=== PATIENT | male | born 1955 | race American Indian/Alaskan Native ===

== ENCOUNTER 2019-08-19 20:19 | Emergency (ER) | payer OTHER, SELFPAY ==
[2019-08-19 20:20] VITALS: BP 154/117; PULSE 56; RESP 15; TEMP 36.6; O2SAT 97; BMI 26.2
[2019-08-19] MEDS: Lidocaine Jelly 2% 20 ML Syringe (URO-JET) 20 APPLIC TOPICAL (20:45)
--- NOTE | 2019-08-19 21:07 | ED.VISSUMM ---
- ER Visit Summary Date of Service: 08/19/19 Chief Complaint: Urinary retention History of Present Illness: The patient is a 63 M who today had a uro-lift by Dr. pro ng. He reports that he is been unable to urinate since 2:00 this afternoon. He has a sharp suprapubic pain is 10-10 in severity. Is worsened by movement relieved by nothing. Denies any nausea, vomiting, or diarrhea. Physical Examination: Vitals: Stable. Afebrile. General: Well-nourished and well-developed. Head: Normocephalic atraumatic. Neck: Supple, no lymphadenopathy. No JVD. Nontender. Cardiovascular: Regular rate and rhythm. No murmurs. Respiratory: No respiratory distress. Clear to auscultation bilaterally. Abdominal: Soft, moderate suprapubic tenderness with an obviously distended bladder, nondistended, normal bowel sounds. No guarding, rebound, or peritoneal signs. Back: Nontender. Extremities: Nontender, no edema. Skin: Normal color, no rash. Neurologic: Alert and oriented ?3. Cranial nerves II through XII are intact. Normal strength and sensation. Psych: Normal affect. Emergency Department Course and Treatment: Patient had a Urojet use and a Silva was placed without difficulty. Treatment Plan: Patient was discussed with Dr. Tsai. He will be discharged with the Silva in place. Instructed to follow-up in the office in 3 days for another exam. Return to the emergency department for any worsening symptoms. Disposition: To home in improved and stable condition. Impression: 1. Urinary retention. 2. Postop day #0 status post UroLift. This note was generated with Schedule Savvy dictation software. It may contain incorrect words, spelling, and punctuation that were not noted in review of the chart prior to signing ED Disposition - Plan for ED Patient: Disposition: Home or Assisted Living Instructions: URINARY RETENTION, Male Referrals: Justino Tsai MD [STAFF PHYSICIAN] - 08/22/19
[2019-08-19 21:42] VITALS: BP 134/87; PULSE 91; RESP 16; O2SAT 99
== END 2019-08-19 21:43 | disposition home or self-care (01) ==
LOC: ED 21:09
PROVIDERS: Emergency Provider Emergency Medicine; PCP Student in an Organized Health Care Education/Training Program
DX: R33.9 Retention of urine, unspecified (principal); R10.9 Unspecified abdominal pain
CPT/HCPCS: 51702; 99283

== ENCOUNTER → 2019-08-29 13:50 | Outpatient (CLI) | payer OTHER, SELFPAY ==
[2019-08-25 15:32] VITALS: BMI 26.7
== END ==
PROVIDERS: PCP Student in an Organized Health Care Education/Training Program; Referring Provider Internal Medicine Cardiovascular Disease; Visit Provider Internal Medicine Cardiovascular Disease
DX: R00.1 Bradycardia, unspecified (principal); I44.7 Left bundle-branch block, unspecified
CPT/HCPCS: 93225; 93226

== ENCOUNTER → 2019-08-31 06:12 | Outpatient (CLI) | payer OTHER, SELFPAY ==
[2019-08-25 15:32] VITALS: BMI 26.7
--- NOTE | 2019-08-31 09:32 | STRESSREP ---
Stress Test Report Date: 08-31-2019 Procedure: Pharmacologic stress nuclear imaging study Indications: Chest pain; left bundle branch block Consent: Per the patient Procedure: The patient underwent pharmacologic (Regadenoson) evaluation with a peak heart rate of 98 beats per minute (62 %predicted maximal heart rate) and a peak blood pressure of 128/86 mmHg. The baseline ECG demonstrated sinus bradycardia; left bundle branch block. The peak pharmacologic ECG demonstrated no obvious ECG changes. There were occasional PVCs during pharmacologic infusion. There was no complaint of chest discomfort during pharmacologic infusion or recovery. The examination was discontinued secondary to completion of protocol. Impression: 1. Pharmacologic (Regadenoson) evaluation 2. Peak pharmacologic ECG with with continued left bundle branch block pattern. 3. There were occasional PVCs during pharmacologic infusion. 4. Nuclear images pending Myocardial perfusion imaging study: Technique: The patient was injected with 14.1 millicuries of technetium 99m Cardiolite and subsequently rest SPECT Cardiolite nuclear imaging was obtained in the horizontal long, vertical long, and short axis views. The patient underwent pharmacologic (Regadenoson) evaluation with a peak heart rate of 98 beats per minute (62 % percent predicted maximal heart rate) and a peak blood pressure of 128/86 mmHg. The patient was injected with 44.2 millicuries of technetium 99m Cardiolite and subsequently stress SPECT Cardiolite nuclear imaging was obtained in the horizontal long, vertical long, and short axis views. A gated Cardiolite study at peak stress was obtained. Interpretation: Rest and stress SPECT Cardiolite nuclear imaging status post realignment, normalization, and attenuation correction demonstrate the appearance of subtle diminished myocardial perfusion/tracer uptake in portions of the distal anteroseptal/septal apical segments which appears to be somewhat more prominent following stress as opposed to rest. There are similar type findings on the polar map images.. There is end systolic thickening and brightening. The gated Cardiolite study demonstrates myocardial thickening and inward wall motion. The reported LVEF is 51 %. Impression: 1. Rest and stress SPECT during nuclear imaging demonstrate myocardial perfusion changes potentially compatible with the effects of shifting soft tissue attenuation/artifact and/or the underlying left bundle branch block pattern, however, an area of stress-induced myocardial ischemia in portions of the distal anteroseptal/septal apical segments cannot necessarily be excluded. 2. The gated Cardiolite study reports an LVEF of 51 %. This note was generated with Teamer.netation software. It may contain incorrect words, spelling, and punctuation that were not noted in checking the note before signing.
== END ==
PROVIDERS: PCP Student in an Organized Health Care Education/Training Program; Referring Provider Internal Medicine Cardiovascular Disease; Visit Provider Internal Medicine Cardiovascular Disease
DX: I44.7 Left bundle-branch block, unspecified (principal); R00.1 Bradycardia, unspecified
CPT/HCPCS: 78452; 93017; A9500; A4216; J2785

== ENCOUNTER 2019-11-01 08:07 | Day surgery (SDC) | payer OTHER, SELFPAY ==
[2019-08-25 15:32] VITALS: BMI 26.7
[2019-09-01 16:58] VITALS: BMI 26.2
--- NOTE | 2019-09-01 17:10 | RAD_ITS ---
STUDY: X-RAY CHEST REASON FOR EXAM: Male, 63 years old. PRE-OP HEART CATH TECHNIQUE: PA and lateral views of the chest. COMPARISON: None. FINDINGS: Mildly prominent lucency in the right apex suggests a region of emphysematous change. The lungs are otherwise clear and expanded. There is no demonstrated pleural abnormality. Normal size heart. Normal mediastinum and theresa. Normal visualized pulmonary arteries. Normal visualized aortic arch and descending thoracic aorta. There are mild degenerative changes of the visualized lower thoracic spine. Normal visualized ribs, clavicles, and shoulders. Itself note of numerous gas-filled bowel loops in the upper abdomen, as well as interposition of hepatic flexure beneath right hemidiaphragm. RAD/Chest PA and Lateral IMPRESSION: 1. Possible emphysematous changes in the right lung apex. No pneumonic infiltrate or CHF. 2. Numerous gas-filled bowel loops seen in the epigastrium. Electronically Signed: Sav Stover MD at 19:38 EST , Service support ,
[2019-09-01 17:38] LABS: Hematocrit 41.4 % (40-54); Hemoglobin 13.3 g/dL (13.0-16.5); Mean Corp Hgb Conc 32.1 g/dL (32-36); Mean Corpuscular Hgb 28.9 pg (27.0-32.0); Mean Platelet Vol. 9.6 fl (6.2-12.0); Platelet Count 221 K/mm3 (150-450); RBC Distribution Width CV 13.9 % (11.6-14.6); RBC Distribution Width SD 46.1 fl (35.1-43.9); White Blood Count 6.7 K/mm3 (4.4-11.0)
[2019-09-01 18:11] LABS: International Normalized Ratio 1.1; Prothrombin Time (Protime)PT. 13.9 SECONDS (11.7-14.9)
[2019-09-01 18:12] LABS: Anion Gap 4 (5-15); BUN 24 mg/dL (7-18); BUN/Creat Ratio 23.1 RATIO (10-20); Calcium,Total 9.3 mg/dL (8.5-10.1); Chloride 108 mmol/L (98-107); Creatinine, Serum 1.04 mg/dL (0.70-1.30); EST Glomerular Filtration Rate 76 mL/min (>60); Est Glom Filt Rate - Afr Amer 92 mL/min (>60); Glucose 93 mg/dL (74-106); Partial Thromboplast Time 29.6 Seconds (24.1-36.2); Potassium 4.2 mmol/L (3.5-5.1); Sodium Level 140 mmol/L (136-145)
[2019-09-07 08:41] VITALS: BMI 26.7
[2019-10-27 14:13] LABS: Hematocrit 40.8 % (40-54); Hemoglobin 13.8 g/dL (13.0-16.5); Mean Corp Hgb Conc 33.8 g/dL (32-36); Mean Corpuscular Hgb 31.5 pg (27.0-32.0); Mean Corpuscular Volume 93.2 fL (80-94); Mean Platelet Vol. 10.3 fl (6.2-12.0); Platelet Count 198 K/mm3 (150-450); RBC Distribution Width CV 14.8 % (11.6-14.6); RBC Distribution Width SD 49.8 fl (35.1-43.9); Red Blood Count 4.38 M/mm3 (4.6-6.2); White Blood Count 4.7 K/mm3 (4.4-11.0)
[2019-10-27 14:23] LABS: International Normalized Ratio 1.1; Prothrombin Time (Protime)PT. 13.5 SECONDS (11.7-14.9)
[2019-10-27 14:24] LABS: Partial Thromboplast Time 29.1 Seconds (24.1-36.2)
[2019-10-27 14:36] LABS: Anion Gap 5 (5-15); BUN 20 mg/dL (7-18); BUN/Creat Ratio 18.7 RATIO (10-20); Calcium,Total 9.2 mg/dL (8.5-10.1); Chloride 108 mmol/L (98-107); Creatinine, Serum 1.07 mg/dL (0.70-1.30); EST Glomerular Filtration Rate 74 mL/min (>60); Est Glom Filt Rate - Afr Amer 89 mL/min (>60); Estimated Creatinine Clearance 82.26 ml/min; Glucose 93 mg/dL (74-106); Potassium 4.3 mmol/L (3.5-5.1); Sodium Level 143 mmol/L (136-145)
--- NOTE | 2019-10-31 15:45 | HP.PCM_ITS ---
<Michel Bravo - Last Filed: 11/01/19 08:32> History and Physical Date of Admission: 11/01/19 HAYDEE LYNN, is a 63 year old white male who presents to the [facility] today for a heart catheterization. He has a history of sinus bradycardia and a left bundle branch block pattern. He was being evaluated and was told, during a routine evaluation, that he had a slow heart rate. An ECG was performed. It demonstrated with the appearance of sinus bradycardia with a left bundle branch block pattern. Thus he was referred by his primary care physician for further evaluation with a transthoracic echocardiogram. This was performed at [facility]. Based upon the study report the left ventricle was normal with an LVEF of 55 to 65%, the left atrium was mildly dilated, the right atrium was dilated, there was trivial MR, mild TR, and mild DC. His nuclear stress test on 08/31/2019 could not exclude stress-induced myocardial ischemia. Thus, he will proceed with heart catheterization to evaluate further. He denies arm, jaw, or neck discomfort. His exercise tolerance is stable. He denies symptoms of CHF, palpitations, lightheadedness, dizziness, near syncope, or syncopal episodes. He denies edema or claudication issues. He denies orthopnea, PND, fever, chills, blood in urine, blood in stool, or myalgia. He states unchanged chest pain, which occurs at rest and not with exertion, and fatigue since last office visit. Intake Vital Signs: See EMR Intake Visit Reasons: [facility] Director Environmental Required: No Allergies No Known Allergies Allergy (Unverified 08/25/19 15:33) Medications See EMR [facility] Medical History (Updated 08/17/19 @ 08:47 by Fatimah Pascual) JAKUB on CPAP (Chronic) Cardiac murmur (Acute) LBBB (left bundle branch block) (Acute) Sinus bradycardia (Chronic) Arthritis (Acute) Hemorrhoids (Acute) Knee pain (Acute) BPH (benign prostatic hyperplasia) (Chronic) Surgical History (Updated 08/25/19 @ 15:35 by Fatimah Pascual) Urolith (Resolved) History of deviated nasal septum (Resolved) History of knee surgery (Resolved) History of vasectomy (Resolved) Social History (Updated 08/25/19 @ 17:[address] Tamir Morejon MD) Smoking Status: Never smoker alcohol intake: never substance use type: does not use caffeine: Yes Type: coffee Number of servings: 3 ROS Const Const: Positive for fatigue; negative for weakness, frequent falls, excessive sweating, weight gain or weight loss Eyes Eyes: Negative for transient loss of vision, blurry vision or change in vision ENT ENT: Negative for dizziness or balance problems Cardio Chest Pain: Yes (Rare) Character: tightness Onset: at rest Location: left chest Duration: minutes Relieving: other (deep breaths) Palpitations: No Edema: None Muscle aches with walking: None Resp Respiratory: Negative for SOB with activity or SOB at rest GI GI: Negative vomiting or vomiting blood/hematemesis : Negative for hematuria Musc Musc: Negative for muscle aches/ myalgia, muscle weakness, joint pain or balance problems Skin Skin: Negative non-healing lesions or rash Neuro Neuro: Negative for dizziness, lightheadedness, orthostatic symptoms, frequent falls, weakness or blurry vision Ye Hematologic/Lymphatic: Negative for easy bleeding Endo Endo: Positive for fatigue; negative for excessive sweating Psych Psych: Negative for anxiety or depression Allergy Allergy/Immunology: Negative for hives, Negative for rash Cardiology Exam Const Appearance: cooperative, healthy appearing, comfortable, no acute distress, well developed and well groomed Nutritional Appearance: average body habitus Orientation: alert, awake and oriented x3 Head Head: normal to inspection, normocephalic and atraumatic Ears: hearing grossly normal bilaterally Nose: external nose normal Face and Sinus: face symmetric Mouth: oral mucosae normal Teeth and gingiva: fair dentition Eyes Eyelids: eyelids normal Conjunctivae: conjunctivae normal Pupils: PERRL EOM: EOM intact bilaterally Neck Neck: normal visual inspection and full ROM Carotids: normal carotid upstroke Chest Chest inspection: normal inspection of the chest, symmetric chest movement and normal respiratory effort Auscultation: Bilateral: Clear to Auscultation Cardio Palpation: normal PMI Rate: regular rate Rhythm: regular rhythm Heart sounds: S1 normal and paradoxically split S2 Murmur: Grade 2/6, soft, mid systolic and LLSB GI GI: normal to inspection, soft and bowel sounds present Neuro General: alert, awake and oriented x3 Skin Skin: no rashes or lesions noted Extremities Pulses: Normal: Right Radial Pulse, Left Radial Pulse Lower Extremity Edema: None: Bilateral Psych Psychological: normal affect Assessment & Plan 1. Sinus bradycardia R00.1 Plan He has not been on medication to induce sinus bradycardia. He should avoid such medications at this time. His sinus bradycardia may be based upon his long history of walking/running. His 24-hour Holter monitor from August 2019 showed normal sinus rhythm with bundle branch block, minimal heart rate of 38 beats minute, maximal heart of 97 bpm, average heart of 57 bpm, ventricular ectopy of 0.5%, supraventricular ectopy of 0.2%, no atrial fibrillation noted, and patient symptoms of tightness in chest and spasm did not correlate with scan. 2. LBBB (left bundle branch block) I44.7 Plan It appears he has a left bundle branch block dating back to at least 2014. He does not recall any cardiovascular studies between 2015 and his most recent studies. His echocardiogram at [facility] in June 2019 showed an ejection fraction of 55-65%, no regional wall motion abnormalities, mildly dilated right atrium, dilated right atrium, and RVSP of 30 mmHg. This will be followed over time. 3. Cardiac murmur R01.1 Plan He does have a cardiac murmur. This may be related to his underlying valvular insufficiency noted on his echocardiogram. He will continue to be followed by history, exam, and echocardiogram. 4. JAKUB on CPAP G47.33; Z99.89 Plan He states he has a history of obstructive sleep apnea. He does use a CPAP type device at home. 5. Precordial pain R07.2 Plan Patient described intermittent left-sided chest discomfort at office visit in July 2019. Because of this, he proceeded with stress test. This was noted to not exclude ischemia. Thus, he will proceed with heart catheterization to e valuate further. Based on results, further recommendation will be made. Plan Detail Additional Comments This note was generated using a voice recognition system and there may be incorrect words, spelling or punctuation that were not noted when reviewing the office note prior to saving. <Tamir Moerjon - Last Filed: 11/01/19 09:20> History and Physical Addendum: D: 11-01-2019 I have re-examined the patient. There are no clinical changes since date of exam. Essential Procedure Criteria Procedure Essential: Yes Criteria Note: On 09/13/2019 the [facility] ([facility]) Public Order signed by [facility] Director Rhoda De La Torre M.D., regarding the Management of Non- Essential Surgeries and Procedures for the purpose of preserving Personal Protective Equipment (PPE) and critical hospital capacity and resources within [place] went into effect as of 09/14/2019 at 5:00PM. According to the [facility] Public Order: This action will remain in full force and effect until the State of Emergency declared by the Governor no longer exists or the Director of the [facility] rescinds or modifies this Order.. This [facility] order stated all non-essential or elective surgeries and procedures that utilize PPE should be delayed unless there is undue risk to the current or future health of a patient. After reviewing the aforementioned [facility] Public Order and the patients clinical case, I have determined that the scheduled procedure meets the criteria to go forward. Risk to Patient if Procedure Delayed: Threat of permanent dysfunction of an extremity or organ if delayed - Chest Pain; Bradycardia; LBBB; Abnormal Pharmacologic Stress Nuclear Study
--- NOTE | 2019-11-01 10:30 | CL.D_ITS ---
Patient Name: MYAH LYNN Study Date: 11/01/2019 Performing: Tamir Morejon MD Ht: 75.19 inches 191 cm : 1955 Wt: 213.85 lbs 97 kg Age: 64 Gender: male BSA: 2.26 PROCEDURE(S) PERFORMED BC94-QLU/COR/LV CLINICAL PROFILE AND INDICATIONS Indications: Suspected CAD, Cardiac Arrythmia Heart Failure: None Stress/Imaging Date: 08/31/2019Stress Test with SPECT MPI: Positive Angina Classification Anginal Classification w/in 2 Weeks: CCS III CAD Presentations: Symptom unlikely to be ischemic. CONCLUSIONS Normal Left Ventricular End Diastolic Pressure Normal LV size, wall motion,and systolic function LVEF: by LV gram 55 % Normal coronary arteries Aortic Root possibly dilated RECOMMENDATIONS Risk factor modification Medical therapy DESCRIPTION OF PROCEDURE The patient arrived to the procedure lab. The risks and benefits of the procedure as well as a full d escription of our services here and current unavailability of surgical backup were fully explained to the patient and/or their significant other prior to the catheterization. The Timeout was completed, verifying the correct patient and procedure. The patient's procedural site was prepped and draped in the usual fashion. Local anesthetic was given subcutaneously to right radial region with Lidocaine 2% . Using a modified Seldinger technique, arterial access was obtained via the right radial artery, a 6 Fr sheath was inserted. Left Coronary Artery selective angiography was performed in multiple views u sing a 5 Fr. 4.0 [place] catheter. Right Coronary Artery selective angiography was then performed in mu ltiple views using a 5 Fr. AR MOD catheter. Left Ventriculography was performed in PAINTER projection usi ng a 5 Fr. Pigtail catheter. LV to AO pullback pressures were then recorded.The arterial sheath was pulled and a TR Band was applied for hemostasis-10 cc aiir CORONARY ANGIOGRAPHY DOMINANCE: Co- Dominant LEFT HEART ASSESSMENT Left Ventricular Ejection Fraction: by LV Gram 55 % Normal LV wall motion Normal Left Ventricular End Diastolic Pressure LVEDP: 10 mmHg LEFT MAIN: short bifurcating vessel, Angiographically normal LEFT ANTERIOR DESCENDING ARTERY: Angiographically normal CIRCUMFLEX ARTERY: Angiographically normal RIGHT CORONARY ARTERY: Angiographically normal AORTIC ROOT: Possibly Dilated COMPLICATIONS No Complications PROCEDURE MEDICATIONS Versed 1 mg IV Fentanyl 50 mcg IV Oxygen: 2 L/min via nasal cannula Heparin diluted in 23cc Heparinized saline. Patient given 10cc IA of this solution. 11/01/2019 09:45:1 3 SUMMARY OF HEMODYNAMIC DATA Time AIR REST ECG 08:34:47 AO 109/68 (88) SA 09:47:21 LV 132/1, 20 10:01:20 LV 114/0, 10 10:01:27 LV 125/0, 15 10:02:18 LVp 134/8, 13 10:02:31 AOp 125/67 (91) 10:02:36 Signed By Tamir Morejon MD On 11/01/2019 10:29:49 Tamir Morejon MD
== END 2019-11-01 11:55 | disposition home or self-care (01) ==
LOC: CLSP 08:10
PROVIDERS: PCP Student in an Organized Health Care Education/Training Program; Referring Provider Internal Medicine Cardiovascular Disease; Visit Provider Internal Medicine Cardiovascular Disease
DX: R00.1 Bradycardia, unspecified (principal); I44.7 Left bundle-branch block, unspecified; R07.2 Precordial pain; R94.39 Abnormal result of other cardiovascular function study; R01.1 Cardiac murmur, unspecified; G47.33 Obstructive sleep apnea (adult) (pediatric); Z99.89 Dependence on other enabling machines and devices; N40.0 Benign prostatic hyperplasia without lower urinary tract symptoms
CPT/HCPCS: 36415; 71046; 80048; 85027; 85610; 85730; 93005; 93458; 99152; 99153; J7040; Q9967; C1769; C1894

== ENCOUNTER → 2020-04-20 17:11 | Outpatient (CLI) | payer OTHER, SELFPAY ==
[2019-09-07 08:41] VITALS: BMI 26.7
== END ==
PROVIDERS: PCP Student in an Organized Health Care Education/Training Program; Referring Provider Internal Medicine Gastroenterology; Visit Provider Internal Medicine Gastroenterology
DX: Z11.59 Encounter for screening for other viral diseases (principal)
CPT/HCPCS: 87635; C9803; U0003

== ENCOUNTER → 2020-11-22 15:21 | Outpatient (CLI) | payer OTHER, SELFPAY ==
[2020-05-31 15:54] VITALS: BMI 26.2
[2020-11-22 17:32] LABS: PSA,Total - Annual Screen 2.41 ng/mL (0.00-4.00)
== END ==
PROVIDERS: PCP Student in an Organized Health Care Education/Training Program; Visit Provider Urology
DX: Z12.5 Encounter for screening for malignant neoplasm of prostate (principal)
CPT/HCPCS: 36415; 84153; G0103

== ENCOUNTER 2023-01-29 08:04 | Day surgery (SDC) | payer MEDICARE, OTHER, SELFPAY ==
[2023-01-29] VITALS (8 sets, daily range): BP systolic 97–150; BP diastolic 59–93; PULSE 45–50; RESP 16–18; TEMP 36.2; O2SAT 96–98; BMI 27.6
[2023-01-29] MEDS: Lactated Ringers 1,000 ML 15 ML IV (08:30)
--- NOTE | 2023-01-29 09:15 | COLBX_PTH ---
PATIENT: MYAH LYNN LOC: EN U#:[id number] AGE/SX: 67/M ROOM: RE01/29/[address]: Dr. León Johnson DO : 1955 BED: DIS: 01/29/2023 SPEC #: [id number] RECD: 01/29/23 12:56 STATUS: PENELOPE REDhaval #: [id number] ILAN: 01/29/23 09:[address]: León Johnson DEPT: SURGICAL PATHOLOGY RECD BY: Ángela Telles ENTERED: 01/29/23 13:38 SP TYPE: COLON BX OTHR DR: Dr. Pravin Villa DO Tissues: COLON BIOPSY Procedures: Surgery Specimen Level IV HEADER OPERATION: Colonoscopy - open access (MAC), biopsy PRE-OP DIAGNOSIS: Screening TISSUE SUBMITTED: Hepatic flexure polyp biopsy MICROSCOPIC DIAGNOSIS Colonic polyp at hepatic flexure, biopsy: Fragments of tubular adenoma. AM:maryse 01/30/2023 MICROSCOPIC DESCRIPTION Slides are reviewed. GROSS DESCRIPTION Received in fixative is one container labeled with the patient's name and designated hepatic flexure polyp. The specimen consists of two irregular fragments of light covington soft tissue that in aggregate measure 0.6 x 0.3 x 0.1 cm. The specimen is totally submitted in one cassette. / SJ:maryse 01/29/2023 TC:5 CPT: 63789
--- NOTE | 2023-01-29 09:44 | HP.PCM_ITS ---
[facility] - General General Date of Admission: 01/29/23 Date of Service: 01/29/23 Chief Complaint: Screening colonoscopy HPI Narrative MYAH LYNN, is a 67 M who presents today for screening colonoscopy. He has a past medical history of JAKUB (to manage block, sinus bradycardia. He he underwent a colonoscopy approximately 3 years ago. However it was a very poor prep. He comes back in for repeat colonoscopy. He does not have any abdominal pain. He denies any nausea, vomiting or diarrhea. Overall he feels very well. [facility] Medical History (Updated 01/26/23 @ 12:49 by Billie Núñez) Arthritis BPH (benign prostatic hyperplasia) Cardiac murmur Cardiology follow-up encounter Hemorrhoids History of echocardiogram History of edema History of Holter monitoring History of left heart catheterization (LHC) (~11/01/19) History of stress test Knee pain LBBB (left bundle branch block) Low iron Migraine headache JAKUB on CPAP Sinus bradycardia Wears glasses Home Medications multivitamin 1 tab PO DAILY 08/17/19 [History Last Taken 11/01/19] sumatriptan succinate 100 mg tablet See Rx Instructions PO .COMPLEX 08/17/19 [History Last Taken Unknown] ferrous sulfate 325 mg (65 mg iron) tablet (Mamie-Time) 325 mg PO DAILY 08/25/22 [History Last Taken Unknown] tamsulosin 0.4 mg capsule 0.4 mg PO DAILY 08/25/22 [History Last Taken Unknown] cetirizine 10 mg tablet (Zyrtec) 10 mg PO DAILY PRN allergy symptoms 11/18/22 [History Last Taken Unknown] psyllium husk 0.4 gram capsule (Metamucil) 0.4 g PO DAILY 11/18/22 [History Last Taken Unknown] meloxicam 15 mg tablet 15 mg PO DAILY 01/26/23 [History Last Taken Unknown] Allergy/AdvReac Type Severity Reaction Status Date / Time No Known Allergies Allergy Verified 01/26/23 12:39 Family History Father Cancer Prostate Surgical History History of colonoscopy History of deviated nasal septum History of knee surgery History of vasectomy Urolith Social History Smoking Status: Never smoker alcohol intake: never substance use type: does not use caffeine: Yes Type: coffee Number of servings: 3 ROS Review of Systems ROS Unobtainable: other Constitutional Constitutional: Denies fatigue, fever(s), poor appetite, weight gain or weight loss ENT HEENT: Denies mouth lesions Cardiovascular Cardiovascular: Denies abdominal bloating, abdominal edema or abdominal pain Respiratory/Chest Respiratory/Chest: Denies change in mental status, change in phlegm color, chest congestion or chest tightness Gastrointestinal Gastrointestinal: Denies belching, bloating, change in bowel habits, change in stool character, chewing difficulty, coffee ground emesis, constipation, cramping, diarrhea, dyspepsia, dysphagia, early satiety, excessive flatus, fecal incontinence, heartburn, hematemesis, hematochezia, hemorrhoids, loose stools, melena, nausea, odynophagia, rectal bleeding, tenesmus, vomiting or weight changes Genitourinary Genitourinary: Denies abdominal discomfort, burning urination or itching Musculoskeletal Musculoskeletal: Reports as per HPI; Denies muscle weakness or myalgias Integumentary Integumentary: Denies jaundice Neurologic Neurologic: Denies lack of coordination or weakness Psychiatric Psychiatric: Denies confusion, depression, memory loss, mood swings, paranoia or suicidal ideation Endocrine Endocrinology: Denies systems reviewed and no addt'l complaints, except as documented Hematologic/Lymphatic Hematologic/Lymphatic: Denies anemia, easy bleeding, easy bruising or lymphadenopathy Allergic/Immunologic Allergic/Immunologic: Denies systems reviewed and no addt'l complaints, except as documented Vital Signs Vital Signs Vital Signs: 01/29/23 08:32 01/29/23 08:32 Temperature 97.1 F L Temperature Source Temporal Pulse Rate 48 L Respiratory Rate 18 Respiratory Pattern Normal Blood Pressure 150/93 H Blood Pressure Mean 112 Blood Pressure Source Monitor Blood Pressure Position Semi-Fowlers Blood Pressure Location Left Arm Pulse Ox 98 Oxygen Delivery Method Room Air Weight Weight: 221 lb 9.6 oz Body Mass Index (BMI) 27.6 Physical Exam Const alert General Appearance: cooperative Orientation / Consciousness: oriented to person HEENT hearing grossly normal bilaterally Head and Scalp: normal to inspection Face and Sinus: face symmetric Nose: external nose normal Mouth: oral and palatal mucosa normal Eyes conjunctivae normal General Eye: normal appearance of both eyes Neck full ROM General: normal visual inspection Lymph Lymphatic: no lymphadenopathy noted Chest inspection of chest normal and palpation of chest normal Chest: symmetrical chest wall rise Resp normal respiratory effort Effort and Inspection: able to speak in complete sentences Cardio regular rate GI non-distended Percussion: normal to percussion Rectal Exam: deferred Neuro Speech: speech normal Gait (Neuro): normal gait Assessment & Plan Assessment/Plan (1) Encounter for screening for malignant neoplasm of colon: PLAN: He was explained alternatives, risk, benefits including not withstanding bleeding, infection, sepsis, perforation, need for emergent surgery . He will have an ASA of 3.
--- NOTE | 2023-01-29 10:45 | OP.CCLET_ITS ---
01/29/2023 Pravin Villa Do Re : Colonoscopy procedure for Abdoulaye Johnson Dear [place] This procedure was performed on January. My impressions and recommendations are as follows: Impressions : - Preparation of the colon was fair. - Hemorrhoids found on perianal exam. - Redundant colon. - One 5 mm polyp at the hepatic flexure, removed with a jumbo cold forceps. Resected and retrieved. - There was significant looping of the colon. - Stool in the recto-sigmoid colon, in the sigmoid colon and in the cecum. Recommendations : - Discharge patient to home. - Resume previous diet. - Continue present medications. - Await pathology results. - Repeat colonoscopy in 5 years for surveillance. My findings are described in the full procedure note, which is enclosed. If I can be of further assistance, please feel free to contact me at . Sincerely, León Johnson DO 01/29/2023 10:44:38 AM This report has been signed electronically.
--- NOTE | 2023-01-29 10:45 | OP.COLON_ITS ---
Patient Name: Abdoulaye Johnson Procedure Date: 01/29/2023 9:42 AM Date of : 1955 Age: 67 Procedure: Colonoscopy Indications: Screening for colorectal malignant neoplasm Providers: León Johnson DO Referring MD: León Johnson DO Medicines: Monitored Anesthesia Care Patient Profile: This is a 67 year old male. Refer to note in patient chart for documentation of history and physical. Last Colonoscopy: 3 years ago. Complications: No immediate complications. Procedure: Pre-Anesthesia Assessment: - Prior to the procedure, a History and Physical was performed, and patient medications and allergies were reviewed. The risks and benefits of the procedure and the sedation options and risks were discussed with the patient. All questions were answered and informed consent was obtained. Patient identification and proposed procedure were verified by the physician in the pre-procedure area. Mental Status Examination: alert and oriented. Airway Examination: normal oropharyngeal airway and neck mobility. Respiratory Examination: clear to auscultation. CV Examination: normal. Prophylactic Antibiotics: The patient does not require prophylactic antibiotics. Prior Anticoagulants: The patient has taken no previous anticoagulant or antiplatelet agents. ASA Grade Assessment: II - A patient with mild systemic disease. After reviewing the risks and benefits, the patient was deemed in satisfactory condition to undergo the procedure. The anesthesia plan was to use monitored anesthesia care (MAC). Immediately prior to administration of medications, the patient was re-assessed for adequacy to receive sedatives. The heart rate, respiratory rate, oxygen saturations, blood pressure, adequacy of pulmonary ventilation, and response to care were monitored throughout the procedure. The physical status of the patient was re-assessed after the procedure. After I obtained informed consent, the scope was passed under direct vision. Throughout the procedure, the patient's blood pressure, pulse, and oxygen saturations were monitored continuously. The colonoscope was introduced through the anus and advanced to the cecum, identified by appendiceal orifice and ileocecal valve. The colonoscopy was performed without difficulty. The patient tolerated the procedure well. The quality of the bowel preparation was fair. Scope In: 9:53:01 AM Scope Withdrawal Time 0 hours 9 minutes 41 seconds Scope Out: 10:37:56 AM Total Procedure Duration Time 0 hours 44 minutes 55 seconds Findings: Hemorrhoids were found on perianal exam. The transverse colon, hepatic flexure and ascending colon were significantly redundant. A 5 mm polyp was found in the hepatic flexure. The polyp was sessile. The polyp was removed with a jumbo cold forceps. Resection and retrieval were complete. Verification of patient identification for the specimen was done. Estimated blood loss was minimal. The sigmoid colon revealed significantly excessive looping. Stool was found in the recto-sigmoid colon, in the sigmoid colon and in the cecum, making visualization difficult. Impression: - Preparation of the colon was fair. - Hemorrhoids found on perianal exam. - Redundant colon. - One 5 mm polyp at the hepatic flexure, removed with a jumbo cold forceps. Resected and retrieved. - There was significant looping of the colon. - Stool in the recto-sigmoid colon, in the sigmoid colon and in the cecum. Recommendation: - Discharge patient to home. - Resume previous diet. - Continue present medications. - Await pathology results. - Repeat colonoscopy in 5 years for surveillance. Procedure Code(s): --- Professional --- 48679, Colonoscopy, flexible; with biopsy, single or multiple CPT copyright 2017 [employer]. All rights reserved. The codes documented in this report are preliminary and upon tribal judge review may be revised to meet current compliance requirements. León Johnson DO 01/29/2023 10:44:38 AM This report has been signed electronically. Number of Addenda: 0 Note Initiated On: 01/29/2023 9:42 AM
== END 2023-01-29 11:35 | disposition home or self-care (01) ==
LOC: EN 08:07 → AC 08:09
PROVIDERS: PCP Student in an Organized Health Care Education/Training Program; Referring Provider Internal Medicine Gastroenterology; Visit Provider Internal Medicine Gastroenterology
PROC: 0DJD8ZZ Inspection of Lower Intestinal Tract, Via Natural or Artificial Opening Endoscopic (ICD-10-PCS; CPT 45378; principal; 2023-01-29 09:10)
DX: Z12.11 Encounter for screening for malignant neoplasm of colon (principal); K63.5 Polyp of colon; K64.9 Unspecified hemorrhoids; Q43.8 Other specified congenital malformations of intestine; G47.33 Obstructive sleep apnea (adult) (pediatric); Z99.89 Dependence on other enabling machines and devices
CPT/HCPCS: 45380; 88305; J7120; J2405

== ENCOUNTER → 2023-07-16 | Outpatient (CLI) | payer MEDICARE, OTHER, SELFPAY ==
--- OUTSIDE RECORDS SUMMARY | 2023-07-16 09:26 | XMS RPT_ITS | CCD ---
Author Name Unknown Address [address] [place] [address] Organization [facility] Care Team Providers Care Furnace Firer Name Role Phone DR FATIMAH VILLEGAS DO Primary Care Physician ([id number] DR FATIMAH VILLEGAS DO Attending Unavailable NELLY KASPER, DR SHERIDAN Primary Care Unavailable DR FATIMAH VILLEGAS DO Attending Unavailable NELLY KASPER, DR SHERIDAN Primary Care Unavailable [facility] Primary Care Provider Unav ailable OLYA GARCIA Admitting Unavailable OLYA GARCIA Attending Unavailable [facility] Primary Care Unavailable Medications Current Medications Medication Drug Class(es) Dates Sig (Normalized) Sig (Original) cetirizine hydrochloride 10 mg oral tablet (4 sources) Histamine-1 Receptor Antagonist Start: 08-11-2022 cetirizine (ZyrTEC) 10 MG tablet Take 10 mg by mouth. 0 08/11/2022 Active ferrous sulfate 325 mg oral tablet (2 sources) Start: 12-19-2022 IRON (ferrous sulfate 325 mg) 65 mg oral tablet Dose : 325 mg = 1 tab(s), Oral, BIDM, Take with food., # 60 tab(s), 3 Refill(s) Start Date: 12/19/22 Status: Ordered FLUoxetine 20 mg oral capsule (1 source) Serotonin Reuptake Inhibitor Start: 10-15-2021 End: 04-13-2022 FLUoxetine 20 mg oral capsule Dose : 20 mg = 1 cap(s), Oral, qDay, # 90 cap(s), 1 Refill(s), Pharmacy: [id number] 190.5, cm, 10/15/21 15:31:00 EDT, Height, kg, 10/15/21 15:31:00 EDT, Dosing Weight Start Date: 10/15/21 Stop Date: 10/16/22 Status: Ordered fluticasone propionate 0.05 mg/actuat metered dose nasal spray (4 sources) Corticosteroid Start: 08-11-2022 fluticasone (Flonase) 50 MCG/ACT nasal spray Administer into affected nostril(s). 0 08/11/2022 Active Completed/Discontinued Medications Medication Drug Class(es) Dates Sig (Normalized) Sig (Original) calcium chloride 0.0014 meq/ml / potassium chloride 0.004 meq/ml / sodium chloride 0.103 meq/ml / sodium lactate 0.028 meq/ml injectable solution (2 sources) Start: 07-09-2023 End: 07-09-2023 lactated Ringer's (LR) infusion 1 ml diphenhydrAMINE hydrochloride 50 mg/ml cartridge (2 sources) Histamine-1 Receptor Antagonist Start: 07-09-2023 End: 07-09-2023 diphenhydrAMINE (BENADryl) injection 12.5 mg 1 ml HYDROmorphone hydrochloride 1 mg/ml cartridge (4 sources) Opioid Agonist Start: 07-09-2023 End: 07-09-2023 HYDROmorphone (Dilaudid) injection 0.5 mg Problems Problem Classification Problem Date Documented Da te Episodic/Chronic Anxiety disorders (6 sources) Mixed anxiety and depressive disorder; Translations: [Panic attack] 12-07-2020 Chronic Asthma (3 sources) Allergic bronchitis 06-30-2019 Chronic Cardiac dysrhythmias (3 sources) Ventricular premature beats 08-31-2019 Chronic Cardiac dysrhythmias (3 sources) Bradycardia 06-30-2019 Episodic Chronic kidney disease (3 sources) Chronic kidney disease stage 2 10-31-2019 Chronic Chronic obstructive pulmonary disease and bronchiectasis (3 sources) Pulmonary emphysema 10-31-2019 Chronic Results Test Name Value Interpretation Reference Range Facil ity Vital Signs Date Time Vital Sign Value Performing Clinician Tommie nath 07-09-2023 12:10-0500 Diastolic blood pressure 81 mm[Hg] [employer] Phone: [facility] 07-09-2023 12:10-0500 Heart rate 48 /min [employer] Phone: [facility] 07-09-2023 12:10-0500 Respiratory rate 18 /min [employer] Phone: [facility] 07-09-2023 12:10-0500 SaO2% (BldA) [Mass fraction] 97 % Olya Yekra Phone: [facility] 07-09-2023 12:10-0500 Systolic blood pressure 122 mm[Hg] Olya Yekra Phone: [facility] 07-09-2023 12:00-0500 Body temperature 97 [degF] Olya Yekra Phone: [facility] 07-09-2023 08:03-0500 Body height 190.5 cm Olya Yekra Phone: [facility] 07-09-2023 08:03-0500 Body mass index (BMI) [Ratio] 27.75 kg/m2 [employer] Phone: [facility] 07-09-2023 08:03-0500 Body weight 100.7 kg [employer] Phone: [facility] Encounters Encounter Date Encounter Type Care Provider Facility Start: 07-09-2023 End: [facility] Start: 07-09-2023 End: 07-09-2023 Subsequent hospital visit by physician Olya Penabryant Lobo Phone: [facility] Start: 12-31-2022 End: 01-01-[address] FATIMAH VILLEGAS DO Facility:B Start: 12-31-2022 End: 12-31-[address] FATIMAH VILLEGAS DO [facility] Start: 12-31-2022 End: 01-01-[address] FATIMAH VILLEGAS DO Facility:[facility] Start: 12-31-2022 End: 12-31-[address] FATIMAH VILLEGAS DO [facility] Start: 12-31-2022 End: 12-31-2022 Well adult monitoring check done DR FATIMAH VILLEGAS DO [facility] Start: 12-20-2021 End: 12-20-[address] FATIMAH VILLEGAS DO [facility] Procedures Date Procedure Procedure Detail Performing Clinician Start: 07-30-2019 Urologic (qualifier value) DR FATIMAH VILLEGAS DO Start: 06-18-[address] FATIMAH POOLE DO Plan of Treatment Date Care Activity Detail Author Start: 02-08-2028 DTaP/Tdap/Td Vaccine s (4 - Td or Tdap) DTaP/Tdap/Td Vaccines (4 - Td or Tdap) [facility] Start: 07-09-2023 End: 07-09-2023 Drug induced sleep endoscopy, with dynamic evaluation of velum pharynx, tongue base, and larynx for evaluation of sleep-disordered breathing, flexible, diagnostic. Drug induced sleep endoscopy, with dynamic evaluation of velum pharynx, tongue base, and larynx for evaluation of sleep-disordered breathing, flexible, diagnostic. Obstructive sleep apnea (adult) (pediatric) 07/09/2023 11:44 AM EST [facility] Operating Room Start: 02-27-2023 COVID-19 Vaccine ( season) COVID-19 Vaccine ( season) [facility] Start: 02-27-2023 Influenza vaccination Influenza Vacc ine (#1) [facility] Start: 12-19-2020 Pneumococcal Vaccine : 65+ Years (2 of 2 - PCV) Pneumococcal Vaccine: 65+ Years (2 of 2 - PCV) [facility] Start: 2014 RSV Immunization age d 60 or older (1 - 1-dose 60+ series) RSV Immunization aged 60 or older (1 - 1-dose 60+ series) [facility] Start: 01-30-2014 IPV Vaccines (2 of 3 - Adult catch-up series) IPV Vaccines (2 of 3 - Adult catch-up series) [facility] Start: 1972 Diabetes mellitus screening Diabetes Screening [facility] Start: 1972 Hepatitis C screening Hepatitis C Sc kaz [facility] Start: 1966 Depression Screening Depression Scre ening [facility] Start: 1954 Lipid panel Lipid Panel [facility] Start: 1954 Medicare Annual Well ness (AWV) Medicare Annual Wellness (AWV) [facility] Start: 1954 Screening for malign ant neoplasm of colon [facility] Immunizations Immunization Date Immunization Notes Care Provider Fa kirbyty 12-19-2022 Pneumococcal conjuga te PCV20, polysaccharide CFU553 conjugate, adjuvant, PF; Translations: [Prevnar 20] DR FATIMAH VILLEGAS DO [facility] Payers Date Payer Category Payer Unknown [id number] 2022 Unknown [employer] [id number] 2022-Present [address] [place] [address] Commercial [id number] 2022 Medicare [id number] 2022 Medicare MEDICARE MEDICAR E PART A AND B [id number] 2022-Present [address] [place] [address] Medicare [id number] 1954 Unknown [id number] 1954 Unknown [id number] Social History Date Type Detail Facility Start: 07-25-2021 End: 07-09-2023 Tobacco smoking status Never smoked tobacco (finding) [facility] Sex Assigned At Male [facility] Start: 07-09-2023 Tobacco use and exposure Smokeless tobacco non-user [facility] Start: 07-09-2023 Alcohol intake Current drinke r of alcohol (finding) [facility] Start: 07-09-2023 History of Social function [facility] Start: 07-09-2023 Tobacco use panel [facility] Start: 07-09-2023 Alcohol Comment rare [facility] Start: 1955 Sex Assigned At Not on file S [facility] Clinical Notes 07-09-2023 Perioperative Nursing Note - Joelle Segura RN - 07/09/2023 12:00 PM ESTOp Note - Olya Garcia, DO - 07/09/2023 11:44 AM ESTOp Note - Olya Garcia, DO - 07/09/2023 11:44 AM EST Note Date & Type Note Facility 07-09-2023 Note Patient: Abdoulaye farrell Procedure Summary Date: 07/09/23 Room / Location: [address] Operating Room Anesthesia Start: 1144 Anesthesia Stop: 120 Procedure: EVALUATION OF SLEEP-DISORDERED BREATHING BY EXAMINATION OF UPPER AIRWAY USING AN ENDOSCOPE Diagnosis: Obstructive sleep apnea (adult) (pediatric) (Obstructive sleep apnea (adult) (pediatric) [G47.33]) Surgeons: Olya Garcia DO Responsible Provider: Bismark Esquivel APRN - SENIOR DRAFTER Anesthesia Type: TIVA, general ASA Status: 1 Anesthesia Type: TIVA, general Vitals Value Taken Time BP 135/84 07/09/23 1200 Temp 36.1 ?C (97 ?F) 07/09/23 1200 Pulse 49 07/09/23 1200 Resp 16 07/09/23 1200 SpO2 95 % 07/09/23 1200 Anesthesia Post Evaluation Patient location during evaluation: PACU Patient participation: complete - patient participated Level of consciousness: awake and alert Pain management: satisfactory to patient Airway patency: patent Dental Injury: no Cardiovascular status: acceptable, blood pressure returned to baseline and hemodynamically stable Respiratory status: acceptable and spontaneous ventilation Hydration status: euvolemic Nausea/Vomiting: controlled No notable events documented. Patient can be discharged once all PACU criteria has been met. [facility] 07-09-2023 Note Patient: Abdoulaye farrell Procedure Summary Date: 07/09/23 Room / Location: [address] Operating Room Anesthesia Start: 1144 Anesthesia Stop: 1202 Procedure: EVALUATION OF SLEEP-DISORDERED BREATHING BY EXAMINATION OF UPPER AIRWAY USING AN ENDOSCOPE Diagnosis: Obstructive sleep apnea (adult) (pediatric) (Obstructive sleep apnea (adult) (pediatric) [G47.33]) Surgeons: Olya Garcia DO Responsible Provider: SERGE Hawk CRNA Anesthesia Type: TIVA, general ASA Status: 1 Anesthesia Type: TIVA, general Vitals Value Taken Time BP 135/84 07/09/23 1200 Temp 36.1 ?C (97 ?F) 07/09/23 1200 Pulse 49 07/09/23 1200 Resp 16 07/09/23 1200 SpO2 95 % 07/09/23 1200 Anesthesia Post Evaluation Patient location during evaluation: PACU Patient participation: complete - patient participated Level of consciousness: awake and alert Pain management: satisfactory to patient Multimodal analgesia pain management approach Airway patency: patent Two or more strategies used to mitigate risk of obstructive sleep apnea Cardiovascular status: acceptable and hemodynamically stable Respiratory status: acceptable Hydration status: acceptable No notable events documented. MIPS #[id number] PONV Patient did not receive an inhalational anesthetic (XX430) MIPS # 424 Perioperative Temperature Management Anesthesia time was less than 60 minutes (4256F) MIPS #477 Multimodal Pain Management Not emergent case Patient was not administered multimodal pain management (G2149) Patient reports no pain in PACU (G2149) MIPS #404 Anesthesiology Smoking Abstinence The patient is not a current smoker (e.g. cigarette, cigar, pipe, e-cigarette/vaping/marijuana) If no stop here (G9644) I completed my handoff to the receiving clinician during which we: 1. Identified the patient 2. Identified the responsible provider 3. Reviewed the pertinent medical history 4. Discussed the surgical course 5. Reviewed intra-op anesthesia management and issues during anesthesia 6. Set expectations for post-procedure period 7. Allowed opportunity for questions and acknowledgement of understanding. [facility] 07-09-2023 Note Consult Note Otolary ngology Patient: Abdoulaye Lynn CHIEF COMPLAINT: apnea PCP: [facility] HISTORY OF PRESENT ILLNESS: The patient is a 67 y.o. male who presents with sleep apnea. Presents for DISE to see if qualifies for Inspire implant. [facility] PAST SURGICAL HISTORY: @[facility]@ [facility] SOCIAL HISTORY: TOBACCO: reports that he has never smoked. He has never used smokeless tobacco. ETOH: reports current alcohol use. MEDICATIONS PRIOR TO ADMISSION: Prior to Admission medications Medication Sig Start Date End Date Taking? Authorizing Provider Fernando 8.6 MG tablet take 2 tablets by mouth at bedtime if needed for constipation WITH PLENTY OF WATER 04/09/23 Yes Historical Provider, tamsulosin (Flomax) 0.4 MG 24 hr capsule Take 0.4 mg by mouth 2 times daily. 06/17/23 Yes Historical Provider, cetirizine (ZyrTEC) 10 MG tablet Take 10 mg by mouth. 08/11/22 Historical Provider, fluticasone (Flonase) 50 MCG/ACT nasal spray Administer into affected nostril(s). 08/11/22 Historical Provider, meloxicam (Mobic) 15 MG tablet take 1 tablet by mouth once daily with food or milk and FLUIDS if... (REFER TO PRESCRIPTION NOTES). 02/10/23 Historical Provider, montelukast (Singulair) 10 MG tablet Take 10 mg by mouth daily. 03/11/23 Historical Provider, ALLERGIES: Patient has no known allergies. PHYSICAL EXAM: Vitals: BP (!) 145/95 Pulse (!) 49 Temp 36.2 ?C (97.1 ?F) (Temporal) Resp 16 Ht 1.905 m (6' 3 ) Wt 101 kg (222 lb) SpO2 96% BMI 27.75 kg/m? General appearance: Alert, appears stated age and cooperative Ears: External pinnae normal in appearance, external auditory canals clear bilaterally, tympanic membranes intact without evidence of retraction, effusion, perforation, or hemotympanum, ossicles appear intact, no tenderness or swelling of the mastoid Nose: External bony pyramid and nasal structure intact, nasal septum midline, nasal mucosa pink and moist, turbinates normal in appearance, no evidence of mucopurulent drainage from the middle meatus bilaterally, no intranasal masses or lesions Oral Cavity: Dentition intact, mucosa pink and moist, oral tongue shows no masses, ulcers or lesions, buccal mucosa clear of lesion, floor of mouth is soft, good flow from Theresa's and Ines's duct bilaterally Oropharynx: Soft palate show no abnormality, uvula midline, posterior oropharyngeal wall clear of any mass or lesion Neck: Supple, no palpable adenopathy, trachea midline, thyroid not enlarged, no palpable nodules Airway/Voice: No evidence of stridor or stertor, voice quality strong with good respiratory effort, no roughness, breathiness, or strain DIAGNOSTICS: CBC: No results for input(s): WBC , HGB , PLT in the last 72 hours. BMP: No results for input(s): NA , K , CL , CO2 , BUN , CREATININE , GLUCOSE in the last 72 hours. Hepatic: No results for input(s): AST , ALT , BILITOT , ALKPHOS in the last 72 hours. No lab exists for component: ALB ABGs: @LABCNT(PHART,PO2ART,TAM9VFJ)@ INR: No results for input(s): INR in the last 72 hours. ASSESSMENT: JAKUB PLAN: Drug-induced sleep exam of upper airway. Olya Garcia DO Consulting Physician [facility] 07-09-2023 Miscellaneous Notes Formattin g of this note might be different from the original. Pt received from OR via cart, spont. Resp. With SENIOR DRAFTER in attendance. Placed on monitor. Monitor alarms on in SDS phase 2 OPERATIVE NOTE Patient Name: Abdoulaye Lynn DATE OF PROCEDURE: 07/09/2023 SURGEON: Olya Garcia DO PREOPERATIVE DIAGNOSES: Pre-op Diagnosis * Obstructive sleep apnea (adult) (pediatric) [G47.33] POSTOPERATIVE DIAGNOSES: same PROCEDURE: Procedure(s): EVALUATION OF SLEEP-DISORDERED BREATHING BY EXAMINATION OF UPPER AIRWAY USING AN ENDOSCOPE ANESTHESIA: General COMPLICATIONS: NONE ESTIMATED BLOOD LOSS: None GROSS FINDINGS: Endoscopy reveals glottic airway to be patent. No sign of laryngeal lesion or neoplasm. Base of tongue and epiglottis unremarkable with no mass or lesion. During sleep endoscopy, collapse occurred exclusively involving the soft palate and base of tongue. There is essentially complete stability of the lateral gordon on the side. Based on these findings, the patient would be deemed a good potential candidate for the inspire implant procedure. DESCRIPTION OF PROCEDURE: The patient was given IV sedation per the Inspire protocol. The nasal cavity was prepped with Afrin nasal spray for topical vasoconstriction. The flexible laryngoscope was advanced along the floor of the nasal cavity its image was projected onto a monitor for viewing by all operating room personnel as well as for data storage. The endoscope was advanced posteriorly through the nasopharynx, oropharynx, and into the supraglottic region. Direct visualization of the glottis, pyriform sinuses, epiglottis, and base of tongue was performed. Note that there is no sign of neoplasm or compression visualized. The endoscope was slowly withdrawn and positioned within the nasopharynx. With the patient sedate, collapse of the upper airway was visualized and documented during spontaneous respirations. The endoscope was then slowly withdrawn from the nasal cavity and removed atraumatically. The patient tolerated the procedure well without incident. documented in this encounter [facility] 07-09-2023 Note Formatting of this n ote might be different from the original. Pt received from OR via cart, spont. Resp. With SENIOR DRAFTER in attendance. Placed on monitor. Monitor alarms on in SDS phase 2 [employer] Phone: 07-09-2023 Note Formatting of this n ote might be different from the original. Pt received from OR via cart, spont. Resp. With SENIOR DRAFTER in attendance. Placed on monitor. Monitor alarms on in SDS phase 2 [employer] Phone: 07-09-2023 Note Formatting of this n ote might be different from the original. OPERATIVE NOTE Patient Name: Abdoulaye Lynn DATE OF PROCEDURE: 07/09/2023 SURGEON: Olya Garcia DO PREOPERATIVE DIAGNOSES: Pre-op Diagnosis * Obstructive sleep apnea (adult) (pediatric) [G47.33] POSTOPERATIVE DIAGNOSES: same PROCEDURE: Procedure(s): EVALUATION OF SLEEP-DISORDERED BREATHING BY EXAMINATION OF UPPER AIRWAY USING AN ENDOSCOPE ANESTHESIA: General COMPLICATIONS: NONE ESTIMATED BLOOD LOSS: None GROSS FINDINGS: Endoscopy reveals glottic airway to be patent. No sign of laryngeal lesion or neoplasm. Base of tongue and epiglottis unremarkable with no mass or lesion. During sleep endoscopy, collapse occurred exclusively involving the soft palate and base of tongue. There is essentially complete stability of the lateral gordon on the side. Based on these findings, the patient would be deemed a good potential candidate for the inspire implant procedure. DESCRIPTION OF PROCEDURE: The patient was given IV sedation per the Inspire protocol. The nasal cavity was prepped with Afrin nasal spray for topical vasoconstriction. The flexible laryngoscope was advanced along the floor of the nasal cavity its image was projected onto a monitor for viewing by all operating room personnel as well as for data storage. The endoscope was advanced posteriorly through the nasopharynx, oropharynx, and into the supraglottic region. Direct visualization of the glottis, pyriform sinuses, epiglottis, and base of tongue was performed. Note that there is no sign of neoplasm or compression visualized. The endoscope was slowly withdrawn and positioned within the nasopharynx. With the patient sedate, collapse of the upper airway was visualized and documented during spontaneous respirations. The endoscope was then slowly withdrawn from the nasal cavity and removed atraumatically. The patient tolerated the procedure well without incident. [facility] 07-09-2023 Note Formatting of this n ote might be different from the original. OPERATIVE NOTE Patient Name: Abdoulaye Lynn DATE OF PROCEDURE: 07/09/2023 SURGEON: Olya Garcia DO PREOPERATIVE DIAGNOSES: Pre-op Diagnosis * Obstructive sleep apnea (adult) (pediatric) [G47.33] POSTOPERATIVE DIAGNOSES: same PROCEDURE: Procedure(s): EVALUATION OF SLEEP-DISORDERED BREATHING BY EXAMINATION OF UPPER AIRWAY USING AN ENDOSCOPE ANESTHESIA: General COMPLICATIONS: NONE ESTIMATED BLOOD LOSS: None GROSS FINDINGS: Endoscopy reveals glottic airway to be patent. No sign of laryngeal lesion or neoplasm. Base of tongue and epiglottis unremarkable with no mass or lesion. During sleep endoscopy, collapse occurred exclusively involving the soft palate and base of tongue. There is essentially complete stability of the lateral gordon on the side. Based on these findings, the patient would be deemed a good potential candidate for the inspire implant procedure. DESCRIPTION OF PROCEDURE: The patient was given IV sedation per the Inspire protocol. The nasal cavity was prepped with Afrin nasal spray for topical vasoconstriction. The flexible laryngoscope was advanced along the floor of the nasal cavity its image was projected onto a monitor for viewing by all operating room personnel as well as for data storage. The endoscope was advanced posteriorly through the nasopharynx, oropharynx, and into the supraglottic region. Direct visualization of the glottis, pyriform sinuses, epiglottis, and base of tongue was performed. Note that there is no sign of neoplasm or compression visualized. The endoscope was slowly withdrawn and positioned within the nasopharynx. With the patient sedate, collapse of the upper airway was visualized and documented during spontaneous respirations. The endoscope was then slowly withdrawn from the nasal cavity and removed atraumatically. The patient tolerated the procedure well without incident. [facility] 07-09-2023 History and physical note Consult Note Otolaryngology Patient: Abdoulaye Lynn CHIEF COMPLAINT: apnea PCP: [facility] HISTORY OF PRESENT ILLNESS: The patient is a 67 y.o. male who presents with sleep apnea. Presents for DISE to see if qualifies for Inspire implant. [facility]: [facility] SOCIAL HISTORY: TOBACCO: reports that he has never smoked. He has never used smokeless tobacco. ETOH: reports current alcohol use. MEDICATIONS PRIOR TO ADMISSION: Prior to Admission medications Medication Sig Start Date End Date Taking? Authorizing Provider Etelvina-deangelo 8.6 MG tablet take 2 tablets by mouth at bedtime if needed for constipation WITH PLENTY OF WATER 04/09/23 Yes Historical Provider, tamsulosin (Flomax) 0.4 MG 24 hr capsule Take 0.4 mg by mouth 2 times daily. 06/17/23 Yes Historical Provider, cetirizine (ZyrTEC) 10 MG tablet Take 10 mg by mouth. 08/11/22 Historical Provider, fluticasone (Flonase) 50 MCG/ACT nasal spray Administer into affected nostril(s). 08/11/22 Historical Provider, meloxicam (Mobic) 15 MG tablet take 1 tablet by mouth once daily with food or milk and FLUIDS if... (REFER TO PRESCRIPTION NOTES). 02/10/23 Historical Provider, montelukast (Singulair) 10 MG tablet Take 10 mg by mouth daily. 03/11/23 Historical Provider, ALLERGIES: Patient has no known allergies. PHYSICAL EXAM: Vitals: BP (!) 145/95 Pulse (!) 49 Temp 36.2 C (97.1 F) (Temporal) Resp 16 Ht 1.905 m (6' 3 ) Wt 101 kg (222 lb) SpO2 96% BMI 27.75 kg/m General appearance: Alert, appears stated age and cooperative Ears: External pinnae normal in appearance, external auditory canals clear bilaterally, tympanic membranes intact without evidence of retraction, effusion, perforation, or hemotympanum, ossicles appear intact, no tenderness or swelling of the mastoid Nose: External bony pyramid and nasal structure intact, nasal septum midline, nasal mucosa pink and moist, turbinates normal in appearance, no evidence of mucopurulent drainage from the middle meatus bilaterally, no intranasal masses or lesions Oral Cavity: Dentition intact, mucosa pink and moist, oral tongue shows no masses, ulcers or lesions, buccal mucosa clear of lesion, floor of mouth is soft, good flow from Theresa's and Ines's duct bilaterally Oropharynx: Soft palate show no abnormality, uvula midline, posterior oropharyngeal wall clear of any mass or lesion Neck: Supple, no palpable adenopathy, trachea midline, thyroid not enlarged, no palpable nodules Airway/Voice: No evidence of stridor or stertor, voice quality strong with good respiratory effort, no roughness, breathiness, or strain DIAGNOSTICS: CBC: No results for input(s): WBC , HGB , PLT in the last 72 hours. BMP: No results for input(s): NA , K , CL , CO2 , BUN , CREATININE , GLUCOSE in the last 72 hours. Hepatic: No results for input(s): AST , ALT , BILITOT , ALKPHOS in the last 72 hours. No lab exists for component: ALB ABGs: @LABCNT(PHART,PO2ART,JCG4RXE)@ INR: No results for input(s): INR in the last 72 hours. ASSESSMENT: JAKUB PLAN: Drug-induced sleep exam of upper airway. Olya Garcia DO Consulting Physician [facility] 07-09-2023 History and physical note Consult Note Otolaryngology Patient: Abdoulaye Lynn CHIEF COMPLAINT: apnea PCP: [facility] Valerie George HISTORY OF PRESENT ILLNESS: The patient is a 67 y.o. male who presents with sleep apnea. Presents for DISE to see if qualifies for Inspire implant. PAST MEDICAL HISTORY: @PMHNH@ PAST SURGICAL HISTORY: @PSHN@ FAMILY HISTORY: @FAMXNH@ SOCIAL HISTORY: TOBACCO: reports that he has never smoked. He has never used smokeless tobacco. ETOH: reports current alcohol use. MEDICATIONS PRIOR TO ADMISSION: Prior to Admission medications Medication Sig Start Date End Date Taking? Authorizing Provider Fernando 8.6 MG tablet take 2 tablets by mouth at bedtime if needed for constipation WITH PLENTY OF WATER 04/09/23 Yes Historical Provider, tamsulosin (Flomax) 0.4 MG 24 hr capsule Take 0.4 mg by mouth 2 times daily. 06/17/23 Yes Historical Provider, cetirizine (ZyrTEC) 10 MG tablet Take 10 mg by mouth. 08/11/22 Historical Provider, fluticasone (Flonase) 50 MCG/ACT nasal spray Administer into affected nostril(s). 08/11/22 Historical Provider, meloxicam (Mobic) 15 MG tablet take 1 tablet by mouth once daily with food or milk and FLUIDS if... (REFER TO PRESCRIPTION NOTES). 02/10/23 Historical Provider, montelukast (Singulair) 10 MG tablet Take 10 mg by mouth daily. 03/11/23 Historical Provider, ALLERGIES: Patient has no known allergies. PHYSICAL EXAM: Vitals: BP (!) 145/95 Pulse (!) 49 Temp 36.2 C (97.1 F) (Temporal) Resp 16 Ht 1.905 m (6' 3 ) Wt 101 kg (222 lb) SpO2 96% BMI 27.75 kg/m General appearance: Alert, appears stated age and cooperative Ears: External pinnae normal in appearance, external auditory canals clear bilaterally, tympanic membranes intact without evidence of retraction, effusion, perforation, or hemotympanum, ossicles appear intact, no tenderness or swelling of the mastoid Nose: External bony pyramid and nasal structure intact, nasal septum midline, nasal mucosa pink and moist, turbinates normal in appearance, no evidence of mucopurulent drainage from the middle meatus bilaterally, no intranasal masses or lesions Oral Cavity: Dentition intact, mucosa pink and moist, oral tongue shows no masses, ulcers or lesions, buccal mucosa clear of lesion, floor of mouth is soft, good flow from Theresa's and Ines's duct bilaterally Oropharynx: Soft palate show no abnormality, uvula midline, posterior oropharyngeal wall clear of any mass or lesion Neck: Supple, no palpable adenopathy, trachea midline, thyroid not enlarged, no palpable nodules Airway/Voice: No evidence of stridor or stertor, voice quality strong with good respiratory effort, no roughness, breathiness, or strain DIAGNOSTICS: CBC: No results for input(s): WBC , HGB , PLT in the last 72 hours. BMP: No results for input(s): NA , K , CL , CO2 , BUN , CREATININE , GLUCOSE in the last 72 hours. Hepatic: No results for input(s): AST , ALT , BILITOT , ALKPHOS in the last 72 hours. No lab exists for component: ALB ABGs: @LABCNT(PHART,PO2ART,KBQ2NVN)@ INR: No results for input(s): INR in the last 72 hours. ASSESSMENT: JAKUB PLAN: Drug-induced sleep exam of upper airway. Olya Garcia DO Consulting Physician documented in this encounter [facility] 07-09-2023 Note Patient: Abdoulaye farrell Procedure Information Date/Time: 07/09/23 0930 Procedure: EVALUATION OF SLEEP-DISORDERED BREATHING BY EXAMINATION OF UPPER AIRWAY USING AN ENDOSCOPE - total time 30 minutes Location: [address] Operating Room Surgeons: Olya Garcia DO Relevant Problems No relevant active problems Past Medical History: Past Medical History: No date: BPH (benign prostatic hyperplasia) No date: Sleep apnea Comment: uses Bipap Past Surgical History: Past Surgical History: No date: KNEE ARTHROSCOPY W/ MENISCECTOMY; Right No date: SEPTOPLASTY No date: UROLOGICAL SURGERY (HISTORICAL) Comment: urolift Social History: TOBACCO: reports that he has never smoked. He has never used smokeless tobacco. ETOH: reports current alcohol use. Social History Substance and Sexual Activity Drug Use Never Family History: No family history on file. Screening: unknown Clinical information reviewed: Tobacco Allergies Meds Med Hx Surg Hx Fam Hx Soc Hx Physical Exam Airway Mallampati: III TM distance: >3 FB Neck ROM: full Mouth Open: normal Cardiovascular Dental dentition normal Pulmonary Abdominal Anesthesia Plan patient is NPO appropriate Any family history or previous problems with anesthesia no ASA 1 TIVA and general Any family history or previous problems with anesthesia no The patient is not a current smoker. Anesthetic plan and risks discussed with patient. JAKUB Screening Labs: No results found for: WBC , HGB , HCT , MCV , PLT No results found for: NA , K , CL , CO2 , BUN , CREATININE , GLUCOSE , CALCIUM , PROT , BILIRUBINFL , ALKPHOS , AST , ALT , EGFR , GLOB No echocardiogram results found for the past 14 days No results found for this or any previous visit. [facility] Evaluation + Plan note Future Appointments Appointment Date:04/15/2022 09:30:00 AM Scheduled Provider:FATIMAH VILLEGAS DO Location:[facility] Appointment Type:[facility] Evaluation + Plan note Future Appointments Appointment Date:04/09/2023 09:00:00 AM Scheduled Provider:FATIMAH VILLEGAS DO Location:[facility] Appointment Type:[facility] Hospital course Narrative No data available for this section [facility] Hospital Discharge instructions No data available for this section [facility] Hospital Discharge instructions The following attachments cannot be sent through Care Everywhere.Moderate Sedation in Adults Discharge Instructions (Turkmen)documented in this encounter [facility] Note KIMBERLEY CHAKRABORTY MD: SIGN, VERIFY Event Display: VL Venous US/Doppler Both Legs (DVT) [facility] Progress note No data available for this section [facility] Summary Purpose Family History No Family History Records FoundNo Family History Records Found Advance Directives No Advanced Directives Records FoundNo Advanced Directives Records Found Additional Source Comments Care Team (unrecognized sect ion and content) Personnel Name: NELLYFATIMAH Address: Address: [address] [place] [address] [place] [address]- [place] Patient Care team informatio n (unrecognized section and content) (unrecognized sect ion and content) No Status Records FoundNo Status Records Found INFORMATION SOURCE (unrecogn ized section and content) DATE CREATED AUTHOR AUTHOR'S ORGANIZ ATION 07/11/2023 [facility] Reason for Visit (unrecogniz ed section and content) Referral ID Status Reason Start Date Expiration Date Visits Re quested Visits Authorized [id number] 1 1 Scheduled Active and Recently Administ ered Medications (unrecognized section and content) Continuous Medication Order 07/07/2023 07/08/2023 07/09/2023 lactated Ringer's (LR) infusion 50 mL/hr, IntraVENous, Continuous, Starting on Kavita 07/09/23 at 0730, Preprocedure, Upon admission to sameday - please start iv if patient does not have iv access. Use 500ml NS for patients on dialysis. 0821 (New Bag - Prov ider: Kendy Lewis RN)1144 (Continued by Anesthesia - Provider: Bismark Esquivel APRN - SENIOR DRAFTER)1154 (Anesthesia Volume Adjustment - Provider: Bismark Esquivel APRN - LEESA) PRN Medication Order 07/07/2023 07/08/2023 07/09/2023 diphenhydrAMINE (BENADryl) injection 12.5 mg 12.5 mg, IntraVENous, Once PRN, itching, Starting on Kavita 07/09/23 at 1232, For 1 dose, Recovery (only) hydrALAZINE (Apresoline) injection 5 mg(Linked Group 2) 5 mg, IntraVENous, Every 15 min PRN, high blood pressure, for SBP greater than 160 mmHg for 2 consecutive measurements taken from different sites, Starting on Kavita 07/09/23 at 1232, For 2 doses, Recovery (only), PRN for SBP > 160 for 2 consecutive measurements, and if one of the following conditions is met: 1) If IV labetolol is ineffective. 2) If HR is under 60. 3) If patient has heart block, COPD or asthma. If both labetalol and hydralazine ineffective, notify anesthesia provider. HYDROmorphone (Dilaudid) injection 0.25 mg 0.25 mg, IntraVENous, Every 5 min PRN, moderate pain (4-6), Starting on Kavita 07/09/23 at 1232, For 4 doses, Recovery (only), For Phase I. If Phase II oral narcotics have been administered in the last 60 minutes, do not administer IV narcotics unless specifically approved by provider. HYDROmorphone (Dilaudid) injection 0.5 mg 0.5 mg, IntraVENous, Every 5 min PRN, severe pain (7-10), Starting on Kavita 07/09/23 at 1232, For 4 doses, Recovery (only), For Phase I. If Phase II oral narcotics have been administered in the last 60 minutes, do not administer IV narcotics unless specifically approved by provider. labetalol (Normodyne,Trandate) injection 5 mg(Linked Group 2) 5 mg, IntraVENous, Every 10 min PRN, high blood pressure, for SBP greater than 160 mmHg for 2 consecutive measurements taken from different sites., Starting on Kavita 07/09/23 at 1232, For 2 doses, Recovery (only), PRN for SBP >160 for 2 consecutive measurements, if HR is 60 or greater. If beta michelle is contraindicated (HR less than 60, heart block, COPD or asthma) use hydralazine IV order. LORazepam (Ativan) injection 0.5 mg 0.5 mg, IntraVENous, Once PRN, for anxiety or muscle spasm., Starting on Kavita 07/09/23 at 1232, For 1 dose, Recovery (only), For IV doses dilute dose with 1ml NS. meperidine (Demerol) injection 12.5 mg 12.5 mg, IntraVENous, Every 5 min PRN, shivering, Starting on Kavita 07/09/23 at 1232, For 2 doses, Recovery (only), May give every 5 minutes to max of 25mg. Notify Anesthesia Provider before administration. ondansetron (Zofran) injection 4 mg 4 mg, IntraVENous, Once PRN, nausea, Starting on Kavita 07/09/23 at 1232, For 1 dose, Recovery (only), Initial antiemetic therapy. oxyCODONE (Roxicodone) immediate release tablet 10 mg(Linked Group 3) 10 mg, Oral, PRN, severe pain (7-10), Starting on Kavita 07/09/23 at 1232, For 1 dose, Recovery (only), PHASE II oxyCODONE (Roxicodone) immediate release tablet 5 mg(Linked Group 3) 5 mg, Oral, PRN, moderate pain (4-6), Starting on Kavita 07/09/23 at 1232, For 1 dose, Recovery (only), PHASE II sodium chloride 0.9 % bolus 500 mL 500 mL, IntraVENous, at 1,000 mL/hr, Administer over 0.5 Hours, PRN, Anti-nausea, Starting on Kavita 07/09/23 at 1232, Recovery (only), Indications: Anti-nausea sodium chloride 0.9 % infusion 5-250 mL/hr, IntraVENous, PRN, if patient receiving piggyback infusions and maintenance fluids are not ordered OR KVO fluids to protect IV site / prevent frequent line interruptions / long duration, Starting on Kavita 07/09/23 at 0725, Preprocedure, For piggyback infusion, administer at same rate as piggyback for a total of 25 mL. Enter 25 mL into dose field and piggyback rate into rate field of order. If piggyback is infusing at a rate less than 100 mL/hr, enter 25 mL into dose field and 100 mL/hr into rate field of order. For KVO fluids, enter rate of 20 mL/hr or less into rate field of order. sodium chloride 0.9% (NS) flush 5-40 mL 5-40 mL, IntraVENous, PRN, line care, After every IV line use, Starting on Kavita 07/09/23 at 0725, Preprocedure, For Line Patency: Peripheral IV = 5 mL; Midline or Central Line = 10 mL/lumen. If following IV push medication, administer flush at same rate as the IV push. Flush volume is determined by type of infusion therapy being given. For non-viscous solutions use: Peripheral IV = 5 mL Midline or Central Line = 10 mL/lumen For viscous solutions (i.e. blood components, parenteral nutrition, contrast media, or after obtaining blood sample) use: Peripheral IV = 10 mL Midline or Central Line = 20 mL/lumen Linked Groups Order Group 1: famotidine (Pepcid) tablet 20 mg (COMPLETED)Jump to med 20 mg, Oral, Once, On Kavita 07/09/23 at 0730, For 1 dose, Preprocedure, IV or ORAL Or famotidine (Pepcid) 20 mg in sodium chloride (PF) 0.9 % 10 mL injection (COMPLETED) 20 mg, IntraVENous, Administer over 2 Minutes, Once, On Kavita 07/09/23 at 0730, For 1 dose, Preprocedure, IV or ORAL Group 2: labetalol (Normodyne,Trandate) injection 5 mgJump to med 5 mg, IntraVENous, Every 10 min PRN, high blood pressure, for SBP greater than 160 mmHg for 2 consecutive measurements taken from different sites., Starting on Kavita 07/09/23 at 1232, For 2 doses, Recovery (only), PRN for SBP >160 for 2 consecutive measurements, if HR is 60 or greater. If beta michelle is contraindicated (HR less than 60, heart block, COPD or asthma) use hydralazine IV order. Or hydrALAZINE (Apresoline) injection 5 mgJump to med 5 mg, IntraVENous, Every 15 min PRN, high blood pressure, for SBP greater than 160 mmHg for 2 consecutive measurements taken from different sites, Starting on Kavita 07/09/23 at 1232, For 2 doses, Recovery (only), PRN for SBP > 160 for 2 consecutive measurements, and if one of the following conditions is met: 1) If IV labetolol is ineffective. 2) If HR is under 60. 3) If patient has heart block, COPD or asthma. If both labetalol and hydralazine ineffective, notify anesthesia provider. Group 3: oxyCODONE (Roxicodone) immediate release tablet 5 mgJump to med 5 mg, Oral, PRN, moderate pain (4-6), Starting on Kavita 07/09/23 at 1232, For 1 dose, Recovery (only), PHASE II Or oxyCODONE (Roxicodone) immediate release tablet 10 mgJump to med 10 mg, Oral, PRN, severe pain (7-10), Starting on Kavita 07/09/23 at 1232, For 1 dose, Recovery (only), PHASE II FOR RECORDS PERTAINING TO PATIENTS WHO ARE OR HAVE BEEN ENROLLED IN A CHEMICAL DEPENDENCY/SUBSTANCEABUSE PROGRAM, SOME INFORMATION MAY BE OMITTED. This clinical summary was aggregated from multiple sources. Caution should be exercised in using it in the provision of clinical care. This summary normalizes information from multiple sources, and as a consequence, information in this document may materially change the coding, format and clinical context of patient data. In addition, data may be omitted in some cases. CLINICAL DECISIONS SHOULD BE BASED ON THE PRIMARY CLINICAL RECORDS. [email or web address] [facility]. provides no warranty or guarantee of the accuracy or completeness of information in this document.
[2023-07-17 14:09] LABS: PSA, Free % 33.7 % (.)
== END | disposition home or self-care (01) ==
LOC: LAB 09:16
PROVIDERS: PCP Student in an Organized Health Care Education/Training Program; Referring Provider Urology; Visit Provider Urology
DX: R97.20 Elevated prostate specific antigen [PSA] (principal)
CPT/HCPCS: 36415; 84153; 84154

== ENCOUNTER → 2023-09-21 | Outpatient (CLI) | payer MEDICARE, OTHER, SELFPAY | END | disposition home or self-care (01) | LOC: PSN 07:12 | PROVIDERS: PCP Student in an Organized Health Care Education/Training Program; Referring Provider Nurse Practitioner Gerontology; Visit Provider Nurse Practitioner Gerontology | DX: R00.1 Bradycardia, unspecified (principal) | CPT/HCPCS: 93225; 93226 ==

== ENCOUNTER → 2024-06-08 | Outpatient (CLI) | payer MEDICARE, OTHER, SELFPAY ==
--- NOTE | 2024-06-08 18:30 | CT_ITS ---
CT LEFT LOWER EXTREMITY WITH 3-D IMAGING CLINICAL INDICATION: LEFT KNEE PAIN TECHNIQUE: Axial CT images of the left lower extremity (including left hip, left knee, and left ankle) was performed without IV contrast material. Coronal and sagittal reformats were provided. The protocol utilizes one or more of the following dose reduction techniques: automated exposure control, adjustment of mA and/or kV according to patient size, and/or use of iterative reconstruction technique. RADIATION DOSAGE (If Supplied By Facility): CTDIvol = ( 18.76 ) mGy, DLP = ( 1499.18 ) mGycm COMPARISON: No relevant prior comparison study available. FINDINGS: Bones: There is mild degenerative arthrosis of the left hip joint with mild subchondral cyst formation. There is mild degenerative arthrosis of the patellofemoral and lateral femorotibial compartments of the left knee with tiny marginal osteophyte formation. Unremarkable left ankle. Osseous structures are intact without evidence of fracture or dislocation. No lytic or blastic osseous masses. Soft Tissues: There is an 8 mm well-corticated ossified loose body at the anterior femorotibial joint recess of the left knee. There is a tiny left knee joint effusion. There are prostatic seeds in place. The deep soft tissue structures are unremarkable. The superficial soft tissues are unremarkable without evidence of edema, hematoma, or foreign body. CT/Extremity Lower without Contra IMPRESSION: Mild degenerative arthrosis of the patellofemoral and lateral femorotibial compartments of the left knee. 8 mm well-corticated ossified loose body at the anterior femorotibial joint recess of the left knee. Tiny left knee joint effusion. Electronically Signed: Germain Burris MD at 13:54 EST ,
== END | disposition home or self-care (01) ==
PROVIDERS: PCP Student in an Organized Health Care Education/Training Program; Visit Provider Orthopaedic Surgery
DX: M17.12 Unilateral primary osteoarthritis, left knee (principal)
CPT/HCPCS: 73700

== ENCOUNTER → 2024-07-01 | Outpatient (CLI) | payer MEDICARE, OTHER, SELFPAY ==
--- NOTE | 2024-07-01 08:54 | EKG12_ITS ---
Test Reason : PRE OP Blood Pressure : */* mmHG Vent. Rate : 54 BPM Atrial Rate : 54 BPM P-R Int : 166 ms QRS Dur : 156 ms QT Int : 474 ms P-R-T Axes : * -37 2 degrees QTcB Int : 449 ms Sinus bradycardia Left axis deviation Left bundle branch block Abnormal ECG Confirmed by AMALIA CHRISTINA, AUDREY ([id number]), features editor ANTONIETTA ENGLAND ([id number]) on 07/01/2024 10:52:19 AM Referred By: Yuriy Lewis Confirmed By: AUDREY HOLLAND MD
--- NOTE | 2024-07-01 09:10 | RAD_ITS ---
INDICATION: PRE OP EXAMINATION/TECHNIQUE: X-RAY - XR Chest 2 Views COMPARISON: September 01, 2019 FINDINGS: LINES/DEVICES: There is an electronic device overlying the right hemithorax with wire extending to the cervical region. LUNGS: No consolidation, edema or effusion. No pneumothorax. MEDIASTINUM AND CARDIOVASCULAR STRUCTURES: Cardiac silhouette not enlarged. Central airways and mediastinal contour are unremarkable. BONES AND SOFT TISSUES: Unremarkable. RAD/Chest PA and Lateral IMPRESSION: No radiographic evidence of acute cardiopulmonary disease. Electronically Signed: Randy Diego DO at 21:19 EST ,
[2024-07-01 09:35] LABS: Absolute Lymphocyte Count 1.68 X10^3/uL (0.83-4.51); Absolute Neutrophil Count 3.1 X10^3/uL (2.0-7.7); Basophil# 0.01 X10^3/uL; Basophil% 0.2 % (0-1); Eosinophil# 0.05 X10^3/uL; Hematocrit 39.4 % (40-54); Lymphocyte # 1.68 X10^3/ul (0.83-4.51); Lymphocyte % 33.1 % (19-41); Mean Corpuscular Hgb 32.3 pg (27.0-32.0); Mean Corpuscular Volume 97.8 fL (80-94); Mean Platelet Vol. 9.5 fl (6.2-12.0); Monocyte# 0.26 X10^3/uL; Monocyte% 5.1 % (0-10); NRBC Flagged by Analyzer 0 % (0-5); Neutrophil # 3.07 X10^3/uL (2.7-7.7); Neutrophil % 60.4 % (47-70); Platelet Count 177 K/mm3 (150-450); RBC Distribution Width CV 13.3 % (11.6-14.6); RBC Distribution Width SD 48.5 fl (35.1-43.9); Red Blood Count 4.03 M/mm3 (4.6-6.2); White Blood Count 5.1 K/mm3 (4.4-11.0)
[2024-07-01 10:12] LABS: Albumin, Serum 3.6 g/dL (3.2-5.0); Anion Gap 4 (5-15); BUN 12 mg/dL (7-18); BUN/Creat Ratio 12.7 RATIO (10-20); Calcium,Total 9.3 mg/dL (8.5-10.1); Chloride 105 mmol/L (98-107); Creatinine, Serum 0.95 mg/dL (0.70-1.30); EST Glomerular Filtration Rate 84 mL/min (>60); Est Glom Filt Rate - Afr Amer 101 mL/min (>60); Glucose 95 mg/dL (74-106); Potassium 4.2 mmol/L (3.5-5.1); Sodium Level 138 mmol/L (136-145)
== END | disposition home or self-care (01) ==
PROVIDERS: PCP Student in an Organized Health Care Education/Training Program; Referring Provider Orthopaedic Surgery; Visit Provider Orthopaedic Surgery
DX: Z01.810 Encounter for preprocedural cardiovascular examination (principal); M17.12 Unilateral primary osteoarthritis, left knee; Z01.811 Encounter for preprocedural respiratory examination; Z01.818 Encounter for other preprocedural examination
CPT/HCPCS: 36415; 71046; 80048; 82040; 85025; 93005

== ENCOUNTER → 2024-07-13 | Outpatient (CLI) | payer MEDICARE, OTHER, SELFPAY ==
--- NOTE | 2024-07-13 13:49 | ECHOD_ITS ---
Reason For Study: Evaluate EF w/LBBB history, Pre Op Procedure This was a 2D Doppler, Color Flow transthoracic echocardiogram. Exam performed in department. Left Ventricle Normal LV size. Left ventricular systolic function is normal. The left ventricular ejection fraction is 55 %. Septal motion consistent with bundle branch block. Stage 1 diastolic dysfunction. No regional wall motion abnormalities noted. Right Ventricle Normal right ventricle. Normal systolic function. Atria Normal left atrium. Normal right atrium. Mitral Valve Normal mitral valve. Mild (1+) eccentric mitral valve insufficiency. Tricuspid Valve Normal tricuspid valve. Aortic Valve Trisinus/trileaflet aortic valve. Pulmonic Valve Normal pulmonic valve. Great Vessels Normal aortic root. The pulmonary artery is normal size. Normal inferior vena cava. Pericardium/Pleural No pericardial effusion. MMode/2D Measurements & Calculations LVIDd: 5.4 cm IVSd: 1.1 cm Ao root diam: 4.1 cm LVIDs: 4.0 cm LVPWd: 1.0 cm RVDd: 4.4 cm FS: 26.0 % LAV(MOD-bp): 63.4 ml LVAd ap4: 39.8 cm2 SV(MOD-sp4): 66.3 ml LAV(MOD-bp) Indexed: 27.8 ml/m2 LVLd ap4: 9.4 cm SI(MOD-sp4): 29.0 ml/m2 LAV(MOD-sp2): 73.5 ml EDV(MOD-sp4): 136.5 ml LAV(MOD-sp4): 55.4 ml EDV(sp4-el): 143.3 ml LVAs ap4: 26.2 cm2 LVLs ap4: 8.3 cm ESV(MOD-sp4): 70.2 ml ESV(sp4-el): 70.3 ml EF(MOD-sp4): 48.6 % EF(sp4-el): 50.9 % SV(sp4-el): 73.0 ml LA A4 area: 17.8 cm2 LA dimension(2D): 4.3 cm RA A4 area: 21.6 cm2 TAPSE: 2.4 cm Time Measurements MV dec time: 0.35 sec Doppler Measurements & Calculations MV E max nima: 46.3 cm/sec Lat Peak E' Nima: 8.4 cm/sec Med Peak E' Nima: 5.0 cm/sec MV A max nima: 73.9 cm/sec E/E' lat: 5.5 E/E' med: 9.2 MV E/A: 0.63 MV V2 max: 74.1 cm/sec MV P1/2t max nima: 55.3 cm/sec Ao V2 max: 173.2 cm/sec MV max P.2 mmHg MV P1/2t: 82.9 msec Ao max P.1 mmHg MV V2 mean: 34.1 cm/sec Ao V2 mean: 117.7 cm/sec MV mean P.59 mmHg MV dec slope: 195.6 cm/sec2 Ao mean P.5 mmHg MV V2 VTI: 18.2 cm MVA(P1/2t): 2.7 cm2 Ao V2 VTI: 32.2 cm AV (velocity ratio): 0.77 LV V1 max: 128.3 cm/sec PA V2 max: 88.1 cm/sec LV V1 max P.6 mmHg LV V1 mean P.6 mmHg LV V1 mean: 87.3 cm/sec LV V1 VTI: 24.9 cm ECHO/Echo Complete Interpretation Summary Normal LV size. Left ventricular systolic function is normal. The left ventricular ejection fraction is 55 %. Stage 1 diastolic dysfunction. Structurally normal valves. Ordering Physician: Michel Bravo Referring Physician: Michel Bravo Performed By: Dudley Coughlin RCS
== END | disposition home or self-care (01) ==
LOC: CVS 13:49
PROVIDERS: PCP Student in an Organized Health Care Education/Training Program; Referring Provider Nurse Practitioner Family; Visit Provider Nurse Practitioner Family
DX: Z01.810 Encounter for preprocedural cardiovascular examination (principal); I44.7 Left bundle-branch block, unspecified
CPT/HCPCS: 93306

== ENCOUNTER → 2024-07-22 | Outpatient (CLI) | payer MEDICARE, OTHER, SELFPAY ==
--- NOTE | 2024-07-22 09:00 | KNEE_PTH ---
PATIENT: MYAH LYNN [facility] U#:[id number] AGE/SX: 68/M ROOM: RE07/22/[address]: Dr. Yuriy Lewis MD : 1955 BED: DIS: 07/22/2024 SPEC #: [id number] RECD: 07/22/24 09:00 STATUS: PENELOPE REDhaval #: [id number] ILAN: 07/22/24 09:[address]: Yuriy Lewis DEPT: SURGICAL PATHOLOGY RECD BY: Ángela Telles ENTERED: 07/25/24 10:09 SP TYPE: TOTAL KNEE OTHR DR: Dr. Pravin Villa, DO Tissues: Knee, NOS Procedures: Decalcification bone/plaque Surgery Specimen Level IV HEADER OPERATION: Left total knee replacement PRE-OP DIAGNOSIS: Unilateral primary osteoarthritis, left knee TISSUE SUBMITTED: Left bone knee and soft tissue MICROSCOPIC DIAGNOSIS Bone and soft tissue, left knee, total knee replacement/resection: Pieces of bone with degenerative osteoarthritic changes. Fibroadipose tissue, fibroconnective tissue and reactive synovial tissue. SJ: 07/28/2024 MICROSCOPIC DESCRIPTION Slides are reviewed. GROSS DESCRIPTION Received is one container designated bone and soft tissue left knee. The specimen consists of multiple fragments of covington-yellow bone measuring in aggregate 12 x 12 x 4 cm. Also in the specimen container are multiple fragments of yellow-white soft tissue measuring in aggregate 9.5 x 7 x 3 cm. A number of bony fragments contain articular surfaces consistent with tibial plateau and femoral condyle and displaying prominent osteophyte formation, eburnation and bone erosion. Tour Sales Representative sections are submitted in two cassettes as follows: 1 - soft tissue, 2 - bone after decalcification. / JO-ANN. 07/25/2024 TC:5 [facility]: [id number]
== END | disposition home or self-care (01) ==
PROVIDERS: PCP Student in an Organized Health Care Education/Training Program; Referring Provider Orthopaedic Surgery; Visit Provider Orthopaedic Surgery
DX: M17.12 Unilateral primary osteoarthritis, left knee (principal)
CPT/HCPCS: 88305; 88311